=== PATIENT | male | born 1965 | race Caucasian/White ===

== ENCOUNTER 2024-12-03 14:53 | Emergency (ER) | payer BC, SELFPAY ==
[2024-12-03] VITALS (7 sets, daily range): BP systolic 141–174; BP diastolic 83–98; BMI 24.2
[2024-12-03 15:15] LABS: Hematocrit 46.2 % (39.0-52.0); Hemoglobin 16.2 g/dL (13.0-18.0); Mean Corp Hgb Conc. 35.1 g/dL (33.0-37.0); Mean Corpuscular Volume 90.2 fL (80.0-94.0); Nucleated Red Blood Cells % 0 % (-); Platelet Count 259 10^3/uL (130-400); Red Cell Dist. Width 13.1 % (11.5-14.5)
[2024-12-03 15:28] LABS: ALT (SGPT) 14 U/L (0-50); AST (SGOT) 13 U/L (17-59); Albumin 4.2 g/dl (3.5-5.0); Alkaline Phosphatase 76 U/L (38-126); Blood Urea Nitrogen 16 mg/dl (9-20); Calcium 10.1 mg/dl (8.4-10.2); Carbon Dioxide 20 mmol/L (22-30); Chloride 111 mmol/L (98-107); Glucose 173 mg/dl (70-99); Lipase 43 U/L (23-300); Potassium 4.5 mmol/L (3.5-5.1); Sodium 139 mmol/L (135-145); Total Protein 6.7 g/dl (6.3-8.2); eGFR > 60.00
--- NOTE | 2024-12-03 18:29 | ED.GENMED ---
History of Present Illness
<DO Bishnu Dejesus Last Filed: 12/04/24 19:29>
General
Chief Complaint: Abdominal Pain
Source: patient and spouse
Time Seen by Provider: 12/03/24 18:20
History of Present Illness
History of Present Illness:
59-year-old male presents to the emergency room for evaluation of abdominal discomfort, diarrhea, intermittent mucus and blood in stool which has been present over the past several weeks to months. Symptoms have been more pronounced over the past 3
to 4 weeks. Today the patient had stool with some admixed blood. He has bloating and a lot of gas. His appetite is normal and he is tolerating oral intake. However he has lost about 12 pounds in 3 weeks. No fever or chills. Patient is not
aware of any family history of inflammatory bowel disease. He does have a family history of pancreatic cancer. Patient endorses smoking about a pack a day. His only prescription medication is metformin.
Past History
<Serge Chand DO - Last Filed: 12/04/24 19:29>
Past History
ED Past Medical History: NIDDM
ED Past Surgical History: None
Social History
Tobacco: Smoker (1ppd)
Alcohol: Occasional
Drug: None
Personal:
Living: with family
Employment: Employed
Phy Exam
<Serge Chand DO - Last Filed: 12/04/24 19:29>
Physical Exam
Physical Exam:
General: Awake, Alert, Oriented X3. Thin, appears somewhat older than stated age
Vitals: unremarkable
Head: Atraumatic
Eyes: Pupils equal, EOMI
Throat: Airway intact, no exudates
Neck: Trachea midline
Lungs: Clear and equal b/l
Heart: Regular rate, no murmurs
Abd: Soft, mild tenderness to palpation bilateral lower quadrants, No pulsatile mass
Neuro: Nonfocal
Skin: Warm, dry, no rash
Extremities: pulses equal b/l, no edema
Course
<Serge Chand DO - Last Filed: 12/04/24 19:29>
Orders/Labs/Results
Orders:
Orders
12/03/24 14:58
IV Insert/Care/Rem.- Treatment PRN
12/03/24 15:03
Complete Blood Count/With Diff Urgent
Comprehensive Metabolic Panel Urgent
Lactic Acid Urgent
Lipase Urgent
12/03/24 18:27
0.9% Sodium Chloride 1000 ml [Nss] 1,000 ml IV BOLUS
12/03/24 18:28
CT Abd/Pel (IV only)-DH only Urgent
Comment:
Reason For Exam: abd pain, bloody stool
12/03/24 20:20
Lactic Acid Urgent
12/03/24 21:14
CDIFF [C difficile Antigen & Toxins] Urgent
NILESH Source: Feces/Stool
Specimen Description:
Date Specimen was Collected: 12/03/24
Time Specimen was Collected: 21:12
Stool Culture Urgent
NILESH Source: Feces/Stool
Specimen Description:
Date Specimen was Collected: 12/03/24
Time Specimen was Collected: 21:12
Abnormal Lab Results
12/03/24
15:03
MCH 31.6 H pg
(27.0-31.0)
MPV 10.5 H fL
(7.4-10.4)
Absolute Monos (auto) 0.7 H 10^3/uL
(0.1-0.6)
Chloride 111 H mmol/L
(98-107)
Carbon Dioxide 20 L mmol/L
(22-30)
Glucose 173 H mg/dl
(70-99)
Lactic Acid 3.1 H mmol/L
(0.7-2.0)
AST 13 L U/L
(17-59)
12/03/24 15:03
12/03/24 15:03
Vital Signs
Initial and Last Documented VS:
Initial Vital Signs
Temp Pulse Resp BP Pulse Ox
98.4 F 98 18 149/87 99
12/03/24 14:56 12/03/24 14:56 12/03/24 14:56 12/03/24 14:56 12/03/24 14:56
Last Documented Vital Signs
Temp Pulse Resp BP Pulse Ox
98.4 F 73 21 174/94 96
12/03/24 14:56 12/03/24 23:00 12/03/24 23:00 12/03/24 22:00 12/03/24 23:00
<Jamar Parsons, DO - Last Filed: 12/03/24 23:55>
Orders/Labs/Results
Orders:
Orders
12/03/24 14:58
IV Insert/Care/Rem.- Treatment PRN
12/03/24 15:03
Complete Blood Count/With Diff Urgent
Comprehensive Metabolic Panel Urgent
Lactic Acid Urgent
Lipase Urgent
12/03/24 18:27
0.9% Sodium Chloride 1000 ml [Nss] 1,000 ml IV BOLUS
12/03/24 18:28
CT Abd/Pel (IV only)-DH only Urgent
Comment:
Reason For Exam: abd pain, bloody stool
12/03/24 20:20
Lactic Acid Urgent
12/03/24 21:14
CDIFF [C difficile Antigen & Toxins] Urgent
NILESH Source: Feces/Stool
Specimen Description:
Date Specimen was Collected: 12/03/24
Time Specimen was Collected: 21:12
Stool Culture Urgent
NILESH Source: Feces/Stool
Specimen Description:
Date Specimen was Collected: 12/03/24
Time Specimen was Collected: 21:12
Abnormal Lab Results
12/03/24
15:03
MCH 31.6 H pg
(27.0-31.0)
MPV 10.5 H fL
(7.4-10.4)
Absolute Monos (auto) 0.7 H 10^3/uL
(0.1-0.6)
Chloride 111 H mmol/L
(98-107)
Carbon Dioxide 20 L mmol/L
(22-30)
Glucose 173 H mg/dl
(70-99)
Lactic Acid 3.1 H mmol/L
(0.7-2.0)
AST 13 L U/L
(17-59)
12/03/24 15:03
12/03/24 15:03
Vital Signs
Initial and Last Documented VS:
Initial Vital Signs
Temp Pulse Resp BP Pulse Ox
98.4 F 98 18 149/87 99
12/03/24 14:56 12/03/24 14:56 12/03/24 14:56 12/03/24 14:56 12/03/24 14:56
Last Documented Vital Signs
Temp Pulse Resp BP Pulse Ox
98.4 F 73 21 174/94 96
12/03/24 14:56 12/03/24 23:00 12/03/24 23:00 12/03/24 22:00 12/03/24 23:00
<Jamar Parsons DO - Last Filed: 12/03/24 23:55>
MDM/Problems Addressed
Differential Diagnosis Includes:
Cholecystitis, bowel obstruction
MDM/Problems Addressed:
59-year-old male with abdominal pain, likely due to rectal mass. Likely adenocarcinoma. Discussed with Dr. Roldan, colorectal surgeon who recommends outpatient follow-up. Return precautions given.
Chronic conditions affecting care: DM
Júniorlt;Serge Chand DO - Last Filed: 12/04/24 19:29>
*Pulse Oximetry
SaO2: 96
Oxygen Mode of Delivery: Room air
<Jamar Parsons, DO - Last Filed: 12/03/24 23:55>
*Radiology
Radiology exam reviewed: radiology read reviewed (CT scan shows rectal mass, distended gallbladder, perirectal lymphadenopathy)
*Pulse Oximetry
Patient hypoxic: no
*Critical Care Note
Total Time (30-74mins, 75-104mins- exclusive of procedures): Not Applicable
<Jamar Parsons, DO - Last Filed: 12/03/24 23:55>
Patient Management
Social determinants of health affecting care: Living situation
Discussion with other providers: Transformation Consultant (Colorectal surgeon Dr. Roldan)
Escalation/DeEscalation of care consider admission/obs:
Admit not indicated
ED Attending Note
<Srege Chand, DO - Last Filed: 12/04/24 19:29>
-
Portions of this chart may have been created with voice recognition software.� Occasional wrong word or��sound alike� substitutions may have occurred due to the inherent limitations of voice recognition software.
Discharge Plan
Departure
Patient Disposition: Home (Routine Discharge)
Date of Disposition: 12/03/24
Time of Disposition: 23:54
Patient with high blood pressure during this ER visit?: Yes
Condition: Good
Discharge Problem:
Mass in rectum
Instructions: Colon and rectal cancer
Prescriptions:
No Action
hydrocodone-acetaminophen 1 TABLET tablet
1 tab PO Q4HPRN PRN (Reason: severe pain) Qty: 15 0RF
cephalexin 500 MG capsule
500 mg PO BID Qty: 20 0RF
Referrals:
Seamus Madera DO [Family Provider, Family Practice]
Serge Roldan MD [Active, ColoRectal] - Call in 1-3 days for appt
Interventions
Interventions:
*Risk Screen - Suicide Last Done: 12/03/24 14:56
*General Assessment Last Done: 12/03/24 18:16
*Neglect/Abuse Screening Last Done: 12/03/24 14:56
*ED- Fall Risk Assessment Last Done: 12/03/24 18:16
*ED COVID-19 Vaccine History Last Done: 12/03/24 18:16
*Nursing Disposition Last Done: 12/04/24 00:09
CG-Itnqut-Dmzbcxzexo Assessment Last Done: 12/03/24 18:16
Discharge Date and Time
Discharge Date/Time: 12/04/24 00:09
Print Language: SINHALA
[2024-12-03] MEDS: NSS 1000 IV (18:36)
== END 2024-12-04 00:09 | disposition home or self-care (01) ==
LOC: EMR 14:53
PROVIDERS: Emergency Medicine; Student in an Organized Health Care Education/Training Program; EMERGENCY PHYSICIAN Emergency Medicine; FAMILY PHYSICIAN Family Medicine
DX: K62.9 Disease of anus and rectum, unspecified (principal); E11.9 Type 2 diabetes mellitus without complications; F17.210 Nicotine dependence, cigarettes, uncomplicated; Z80.0 Family history of malignant neoplasm of digestive organs
CPT/HCPCS: 99284; 96360; 74177; 80053; 83605; 83690; 85025; 87045; 87046; 87324; 87427; 87449; Q9967

== ENCOUNTER 2024-12-13 06:24 | Day surgery (SDC) | payer BC, SELFPAY ==
[2024-12-13 12:43] VITALS: BMI 23.7
[2024-12-13 12:44] VITALS: BMI 23.7
[2024-12-13 12:45] VITALS: BP 155/97
[2024-12-13 12:58] LABS: Glucose - Point of Care 179 mg/dl (70-99)
[2024-12-13 14:52] VITALS: BP 126/84
[2024-12-13 15:00] VITALS: BP 118/73
[2024-12-13 15:15] VITALS: BP 161/98
[2024-12-13 15:30] VITALS: BP 161/99
== END 2024-12-13 15:48 | disposition home or self-care (01) ==
LOC: SDS 06:24
PROVIDERS: ATTENDING PHYSICIAN Surgery
DX: C20 Malignant neoplasm of rectum (principal); D12.3 Benign neoplasm of transverse colon; D12.5 Benign neoplasm of sigmoid colon; K63.5 Polyp of colon; K57.30 Diverticulosis of large intestine without perforation or abscess without bleeding; K62.89 Other specified diseases of anus and rectum; K56.2 Volvulus; Q43.8 Other specified congenital malformations of intestine; R93.3 Abnormal findings on diagnostic imaging of other parts of digestive tract
CPT/HCPCS: 45385; 45380; 82962; 88305; 88342; J1610

== ENCOUNTER → 2024-12-19 10:13 | Outpatient (REF) | payer BC, SELFPAY | LOC: RAD 10:13 | PROVIDERS: ATTENDING PHYSICIAN Surgery; FAMILY PHYSICIAN Family Medicine | DX: C20 Malignant neoplasm of rectum (principal) | CPT/HCPCS: 71260; 74177; Q9967 ==

== ENCOUNTER → 2024-12-27 08:58 | Outpatient (REF) | payer BC, SELFPAY | LOC: MRI 3T 08:58 | PROVIDERS: ATTENDING PHYSICIAN Surgery; FAMILY PHYSICIAN Family Medicine | DX: C20 Malignant neoplasm of rectum (principal) | CPT/HCPCS: 72197; A9575 ==

== ENCOUNTER 2025-01-15 10:53 | Day surgery (SDC) | payer BC, SELFPAY ==
[2025-01-15 11:54] LABS: Glucose - Point of Care 263 mg/dl (70-99)
[2025-01-15 12:00] VITALS: BMI 24.3
[2025-01-15 12:01] VITALS: BMI 24.3
[2025-01-15 12:03] VITALS: BP 146/89
[2025-01-15] MEDS: NOVOLOG vial 2 UNITS SC (12:42)
[2025-01-15] MEDS: TYLENOL 1000 MG PO (12:43)
[2025-01-15] MEDS: CELEBREX 200 MG PO (12:43)
[2025-01-15 14:45] LABS: Glucose - Point of Care 212 mg/dl (70-99)
[2025-01-15] MEDS: NOVOLOG vial 1 UNITS SC (14:48)
--- NOTE | 2025-01-15 17:22 | W.IMMPOSTOP ---
Surgical Immed Post Op Note
-
Primary Surgeon: Serge Roldan MD
Assisting Surgeon: Taiwo Magdaleno MD
Pre-op Diagnosis: Stage III rectal cancer
Post-op Diagnosis: Stage III rectal cancer
Procedure Performed: Left subclavian Mediport insertion
Anesthesia Type: Sedation with local
Specimen / Cultures: None
Estimated Blood Loss: 10 mL
Complications: None
Operative Findings: Access left subclavian on first attempt; passed guidewire and confirmed left subclavian under fluoroscopy; advanced catheter to cavoatrial junction; confirmed placement after port secured to the chest wall; checked port with the
easy return of blood and easy flush
--- NOTE | 2025-01-15 17:25 | OR.RPT ---
Operative Report
Operative Report
DATE OF OPERATION: 01/15/2025
SURGEON: Serge Roldan MD
PREOPERATIVE DIAGNOSIS: Stage III rectal cancer
POSTOPERATIVE DIAGNOSIS: Stage III rectal cancer
OPERATION: Left subclavian Mediport insertion
ASSISTANTS:
1. Taiwo Magdaleno MD
ANESTHESIA: Sedation with local
ESTIMATED BLOOD LOSS: 10 mL
FINDINGS:
1. After placement, the tip of port catheter visualized at level of the cavoatrial junction on fluoroscopy
2. Once sutured in position, port tested with Oconnell needle and there was good withdrawal of blood and instillation of heparinized saline without resistance
SPECIMENS: None
DRAINS: None
COMPLICATIONS: No immediate complications.
INDICATIONS: The patient is a 59-year-old male with stage III rectal cancer. Infusional chemotherapy was recommended. Therefore, I recommended port placement. The operation was discussed with the patient in detail including risks and benefits.
Risks discussed included, but are not limited to, bleeding, infection, pneumothorax, post-operative malposition or movement of catheter, need for second surgery, DVT/PE, and anesthetic risks. The patient understood and agreed to proceed. The consent
was signed and placed in the chart.
PROCEDURE: Patient was taken to the operating room and placed on the operating table in supine position. Sequential compression devices were placed bilaterally. Sedation was commenced without complication. Bilateral arms were tucked and the head
was tilted toward the right. The left neck and chest wall area were shaved, prepped and draped in a sterile fashion. A time-out was then performed verifying the correct patient, procedure, operative site, positioning, and special equipment.
The patient was placed in Trendelenburg position. 10mL of local anesthetic consisting of 1% lidocaine with epinephrine was used to numb the skin and soft tissue near the angle of the left clavicle. Using bony landmarks as a guide, I passed the
needle with 10mL syringe under the left clavicle in the direction of the sternal notch while simultaneously aspirating. On the first pass, good venous return was noted indicating that I had accessed the left subclavian vein. Under fluoroscopic
guidance, a guidewire was passed through the needle into the patient down to the superior vena cava. This went smoothly.
The needle was removed over the guidewire and a skin opening was enlarged with an 11 blade scalpel. Next, I advanced the dilator and peel-away sheath together over the guidewire into the patient. This went smoothly as well. Next, the guidewire and
inner dilator were removed leaving the outer sheath in place. I advanced the white tubing through the outer sheath into the patient under fluoroscopic guidance to the superior vena cava near the right atrium. Next, the outer sheath was peeled away
while maintaining the white tubing in place. The location of the catheter tip was confirmed on fluoroscopy.
I injected more 1% lidocaine with epinephrine into the planned subcutaneous port pocket. Using a 15 blade scalpel, I made a 3 cm incision over the chest wall. A subcutaneous pocket was created inferiorly to the incision with a combination of Bovie
electrocautery and blunt dissection. There was good hemostasis. The white tubing was connected to the tunneling device and brought through a newly created tunnel to the pocket area, taking care to avoid kinking of the tube. I confirmed with
fluoroscopy that the tip was still at the cavoatrial junction after this manipulation. The white tubing was trimmed, connected to the the port reservoir and secured with the locking mechanism. The port reservoir was accessed with good venous return
and flushed with heparinized saline. One last round of fluoroscopy was performed. The tip of the white tubing was at the level of the cavoatrial junction and there was no kink in the tubing.
The reservoir was secured to the chest wall with two 3-0 Prolene stitches. The port was accessed once more with the Oconnell needle and heparinized saline. The port withdrew promptly and flushed easily. The subcutaneous layer was closed with deep
dermal interrupted 3-0 Vicryl and the skin was closed with a running subcuticular 4-0 Vicryl. The remaining 1% lidocaine was injected around the subcutaneous pocket, port incision and stab incision. Total amount of local used was 20mL. Dermabond
was used to dress the port incision and stab incision.
At this point, the procedure was complete. All sponge, needle and instrument counts were correct. The patient tolerated the procedure well and was transferred to the recovery room in stable condition. A portable chest x-ray was ordered in recovery
to confirm port position and rule-out pneumothorax.
Of note, Taiwo Magdaleno MD, press assistant and feeder, was necessary during this procedure for traction, countertraction, and exploratory purposes. I was present for the entire duration of the case.
DICTATED BY: Serge Roldan MD
[2025-01-15 17:32] VITALS: BP 100/64; BP_SYST 12
[2025-01-15 17:45] VITALS: BP 106/59
[2025-01-15 17:48] LABS: Glucose - Point of Care 131 mg/dl (70-99)
[2025-01-15 18:00] VITALS: BP 114/67
[2025-01-15 18:05] VITALS: BP 105/68
[2025-01-15 18:20] VITALS: BP 115/69
== END 2025-01-15 18:39 | disposition home or self-care (01) ==
LOC: SDS 10:53
PROVIDERS: ATTENDING PHYSICIAN Surgery
DX: C20 Malignant neoplasm of rectum (principal); Z45.2 Encounter for adjustment and management of vascular access device
CPT/HCPCS: 36561; 71045; 76000; 82962; C1788

== ENCOUNTER → 2025-02-12 15:50 | Outpatient (REF) | payer BC, SELFPAY | LOC: RCS 15:50 | PROVIDERS: ATTENDING PHYSICIAN Internal Medicine Cardiovascular Disease; FAMILY PHYSICIAN Family Medicine | DX: I25.10 Atherosclerotic heart disease of native coronary artery without angina pectoris (principal); R03.0 Elevated blood-pressure reading, without diagnosis of hypertension | CPT/HCPCS: 93306 ==

== ENCOUNTER → 2025-05-03 07:46 | Outpatient (REF) | payer BC, SELFPAY ==
[2025-05-03 08:29] LABS: Hematocrit 44.0 % (39.0-52.0); Hemoglobin 15.5 g/dL (13.0-18.0); Mean Corp Hgb Conc. 35.2 g/dL (33.0-37.0); Mean Corpuscular Volume 93.6 fL (80.0-94.0); Nucleated Red Blood Cells % 0 % (-); Platelet Count 192 10^3/uL (130-400); Red Cell Dist. Width 12.7 % (11.5-14.5)
[2025-05-03 08:55] LABS: ALT (SGPT) 13 U/L (0-50); AST (SGOT) 11 U/L (17-59); Albumin 4.1 g/dl (3.5-5.0); Alkaline Phosphatase 108 U/L (38-126); Blood Urea Nitrogen 17 mg/dl (9-20); Calcium 9.7 mg/dl (8.4-10.2); Carbon Dioxide 28 mmol/L (22-30); Chloride 103 mmol/L (98-107); Glucose 307 mg/dl (70-99); Potassium 4.6 mmol/L (3.5-5.1); Sodium 135 mmol/L (135-145); Total Protein 6.7 g/dl (6.3-8.2); eGFR > 60.00
== END ==
LOC: REG 07:46
PROVIDERS: ATTENDING PHYSICIAN Internal Medicine Hematology & Oncology
DX: C21.8 Malignant neoplasm of overlapping sites of rectum, anus and anal canal (principal)
CPT/HCPCS: 36415; 80053; 85025

== ENCOUNTER → 2025-05-06 10:23 | Outpatient (REF) | payer BC, SELFPAY | LOC: PET 10:23 | PROVIDERS: ATTENDING PHYSICIAN Nurse Practitioner | DX: I42.8 Other cardiomyopathies (principal); E11.9 Type 2 diabetes mellitus without complications; I25.10 Atherosclerotic heart disease of native coronary artery without angina pectoris | CPT/HCPCS: 78431; A9555; J2785 ==

== ENCOUNTER → 2025-05-20 10:35 | Outpatient (REF) | payer BC, SELFPAY ==
[2025-05-20 11:26] LABS: Hematocrit 41.2 % (39.0-52.0); Hemoglobin 14.8 g/dL (13.0-18.0); Mean Corp Hgb Conc. 35.9 g/dL (33.0-37.0); Mean Corpuscular Volume 92.2 fL (80.0-94.0); Nucleated Red Blood Cells % 0 % (-); Platelet Count 214 10^3/uL (130-400); Red Cell Dist. Width 12.7 % (11.5-14.5)
[2025-05-20 11:57] LABS: ALT (SGPT) 27 U/L (0-50); AST (SGOT) 26 U/L (17-59); Albumin 4.0 g/dl (3.5-5.0); Alkaline Phosphatase 121 U/L (38-126); Blood Urea Nitrogen 9 mg/dl (9-20); Calcium 9.2 mg/dl (8.4-10.2); Carbon Dioxide 27 mmol/L (22-30); Chloride 98 mmol/L (98-107); Glucose 337 mg/dl (70-99); Potassium 5.1 mmol/L (3.5-5.1); Sodium 132 mmol/L (135-145); Total Protein 6.5 g/dl (6.3-8.2); eGFR > 60.00
== END ==
LOC: RCS 10:35
PROVIDERS: ATTENDING PHYSICIAN Internal Medicine Hematology & Oncology; FAMILY PHYSICIAN Nurse Practitioner
DX: I42.8 Other cardiomyopathies (principal); E78.5 Hyperlipidemia, unspecified; C21.8 Malignant neoplasm of overlapping sites of rectum, anus and anal canal
CPT/HCPCS: 36415; 80053; 85025; 93306; 93356